=== PATIENT | female | born 1970 | race Caucasian/White ===

== ENCOUNTER 2018-07-25 11:18 | Emergency (ER) | payer OTHER, SELFPAY ==
[2018-07-25 11:25] VITALS: BP 140/85; PULSE 67; RESP 16; TEMP 37; O2SAT 100; BMI 27.4
[2018-07-25 11:50] VITALS: BP 133/82; PULSE 68; RESP 18
[2018-07-25 11:54] LABS: Add Manual Diff / Slide Review NO; Basophils Absolute Auto 100 /uL (0-100); Eosinophils Absolute Auto 300 /uL (0-450); Eosinophils Percent Auto 4.2 % (2-4); Hematocrit 40.2 % (36-46); Lymphocytes Absolute Auto 1500 /uL (1100-4500); Mean Corpuscular HGB Conc 32.5 % (30-36); Mean Corpuscular Hemoglobin 26.9 PG (26-34); Monocytes Absolute Auto 300 /uL (0-900); Monocytes Percent Auto 5.3 % (3-14); Neutrophils Absolute Auto 4000 /uL (1500-7000); Neutrophils Percent Auto 65.5 % (50-75); Platelet Count 282 X10^3/uL (150-400); Red Blood Cell Count 4.84 X10^6/uL (4.0-5.2); Red Cell Distribution Width 12.9 % (11.6-14.8); White Blood Cell Count 6.1 X10^3/uL (4.5-11.0)
[2018-07-25 12:03] LABS: BUN Creatinine Ratio 18.3 (6-22); Blood Urea Nitrogen 11 mg/dL (7-17); Carbon Dioxide 26 mmol/L (22-32); Chloride 106 mmol/L (98-107); Estimated Glomerular Filt Rate > 60.0 mL/min (>60); Glucose 100 mg/dL (70-100); HEMOLYSIS 22 (0-50); Potassium 3.8 mmol/L (3.4-5.1); Sodium 140 mmol/L (137-145)
[2018-07-25 12:13] LABS: Troponin I < 0.012 ng/mL (0.01-0.034)
[2018-07-25 13:00] VITALS: BP 144/89; PULSE 64; RESP 17; O2SAT 100
--- NOTE | 2018-07-25 20:03 | ED_ITS ---
HPI - Dizziness General Chief Complaint: Dizziness Stated Complaint: TINGLING, HIGH BLOOD PRESSURE, DIZZY Time Seen by Provider: 07/25/18 11:45 Source: patient and family Mode of arrival: ambulatory Limitations: no limitations History of Present Illness HPI Narrative: 47-year-old female nonsmoker with history of depressionpresents with vague symptoms such as fatigue and some dizziness and generalized tingling over the past week or 2. she denies any specific focal neurologic findings such as blurred vision, trouble with speech, unilateral numbness, tingling or weakness. She was at the ENT office today for routine evaluation and they noted her blood pressure to be in the 140s and stated that this was quite high and encouraged her to come directly to the emergency department. Admittedly the patient typically runs in the 110s. Patient does not typically take any antihypertensives. The patient began a 2 week taper of an SSRI 2 weeks ago and was set to start a new 1 in the past day or 2 but did not because she has not been feeling well. MD complaint: dizziness and lightheadedness Onset (ago): day(s) Timing: gradual onset Description: lightheadedness History of similar episodes: No History of trauma: No Severity: moderate Relieving factors: nothing Exacerbating factors: nothing Related Data Home Medications Medication Instructions Recorded Confirmed bupropion HCl 150 mg PO DAILY 07/25/18 07/25/18 Allergies Allergy/AdvReac Type Severity Reaction Status Date / Time No Known Drug Allergies Allergy Verified 07/25/18 11:25 Review of Systems Constitutional Denies chills, Reports difficulty sleeping, Denies fever(s), Denies lethargy and Reports weakness Eyes Denies change in vision, Denies eye discharge, Denies irritation and Denies loss of vision ENT Ears, Nose, Mouth, and Throat: Denies change in voice, Reports dizziness, Denies neck pain and Denies sore throat Cardiovascular Denies chest pain, Denies irregular heart rhythm, Denies lightheadedness, Denies palpitations, Denies dyspnea, Denies dyspnea on exertion and Denies orthopnea Respiratory Denies cough, Denies dyspnea, Denies dyspnea on exertion and Denies wheezing Gastrointestinal Gastrointestinal: Denies abdominal pain, Denies change in bowel habits, Denies diarrhea, Denies nausea and Denies vomiting Genitourinary Denies hematuria, Denies flank pain, Denies urinary incontinence and Denies urinary urgency Musculoskeletal Denies neck pain and Reports tingling Integumentary/Breasts Denies pruritus, Denies erythema, Denies rash and Denies wounds Neurologic Denies confusion, Reports dizziness, Denies loss of vision, Reports tingling and Reports weakness Psychiatric Denies anxiety, Denies confusion, Denies depression, Denies homicidal ideation and Denies suicidal ideation Endocrine Denies palpitations Hematologic/Lymphatic Denies easy bruising Allergic/Immunologic Denies wheezing Exam Narrative Exam Narrative: GENERAL: A 47-year-old female appears stated age.This is a well-nourished, well-developed patient, in mild distress. Visibly anxious HEAD: Atraumatic. Normocephalic. No temporal or scalp tenderness. EYES: Pupils equal round and reactive. Extraocular motions intact. No scleral icterus. No injection or drainage. ENT: Nose without bleeding, purulent drainage or septal hematoma. Throat without erythema, tonsillar hypertrophy or exudate. Uvula midline. Airway patent. NECK: Trachea midline. No JVD or lymphadenopathy. Supple, nontender, no meningeal signs. CARDIOVASCULAR: Regular rate and rhythm without murmurs, gallops, or rubs. RESPIRATORY: Clear to auscultation. Breath sounds equal bilaterally. No wheezes, rales, or rhonchi. GASTROINTESTINAL: Abdomen soft, non-tender, nondistended. No hepato- splenomegaly, or palpable masses. No guarding. EXTREMITIES: No clubbing, cyanosis, or edema. No joint tenderness, effusion, or edema noted. BACK: Nontender without deformity or crepitance. No flank tenderness. NEURO: AOx3. SKIN: No rash or erythema. NIH Stroke Scale 1a. LOC: Patient is alert and keenly responsive (0) 1b. LOC Questions: Patient answers both LOC questions accurately (0) 1c. LOC Commands: Patient performs both tasks correctly (0) 2. Best Gaze: Normal (0) 3. Visual: No visual loss (0) 4. Facial palsy: Normal symmetrical movements (0) 5. Motor arm: No drift (0) 6. Motor leg: No drift (0) 7. Limb ataxia: Absent (0) 8. Sensory: Normal (0) 9. Best language: No aphasia; normal (0) 10. Dysarthria: Normal (0) 11. Extinction and inattention: No abnormality (0) NIHSS: 0 Initial Vital Signs Initial Vital Signs: Vital Signs Temperature 98.6 F 07/25/18 11:25 Pulse Rate 67 07/25/18 11:25 Respiratory Rate 16 07/25/18 11:25 Blood Pressure 140/85 07/25/18 11:25 Pulse Oximetry 100 07/25/18 11:25 Course Orders Ordered: ED Orders 07/25/18 11:29 EKG-12 Lead Stat 07/25/18 11:46 Basic Metabolic Panel Stat Complete Blood Count AUTO DIFF Stat Troponin I Stat Vital Signs - 8 hr 07/25/18 13:00 Pulse Rate 64 Respiratory Rate 17 Blood Pressure [Right Arm] 144/89 H Pulse Oximetry 100 MDM - Dizziness Lab Data Result diagrams: 07/25/18 11:46 07/25/18 11:46 Lab Results 07/25/18 07/25/18 Range/Units 11:46 11:46 WBC 6.1 (4.5-11.0) X10^3/uL RBC 4.84 (4.0-5.2) X10^6/uL Hgb 13.0 (12.0-16.0) g/dL Hct 40.2 (36-46) % MCV 83.0 (80-100) fL MCH 26.9 (26-34) PG MCHC 32.5 (30-36) % RDW 12.9 (11.6-14.8) % Plt Count 282 (150-400) X10^3/uL Neut % (Auto) 65.5 (50-75) % Lymph % (Auto) 24.0 L (25-40) % [place] % (Auto) 5.3 (3-14) % Eos % (Auto) 4.2 H (2-4) % Baso % (Auto) 1.0 (0-2) % Neut # (Auto) 4000 (6131-0629) /uL Lymph # (Auto) 1500 (4798-5378) /uL [place] # (Auto) 300 (0-900) /uL Eos # (Auto) 300 (0-450) /uL Baso # (Auto) 100 (0-100) /uL Sodium 140 (137-145) mmol/L Potassium 3.8 (3.4-5.1) mmol/L Chloride 106 (98-107) mmol/L Carbon Dioxide 26 (22-32) mmol/L BUN 11 (7-17) mg/dL Creatinine 0.60 (0.52-1.04) mg/dL Estimated GFR > 60.0 (>60) mL/min BUN/Creatinine Ratio 18.3 (6-22) Glucose 100 (70-100) mg/dL Calcium 9.0 (8.4-10.2) mg/dL Troponin I < 0.012 (0.01-0.034) ng/mL MDM Narrative Medical decision making narrative: 47-year-old female presents with nonspecific symptoms such as dizziness, tingling and fatigue. The symptoms have been present for few weeks and on routine exam was noted to have elevated blood pressure of 140. this is higher than her normal 110 but still unlikely to be causing the above-stated symptoms. She has very little else going on and lab evaluation is normal. NIH stroke scale is 0. the symptoms also coincide with a taper off of her SSRI. It seems likely that her symptoms are multifactorial and probably related to, on some level, the tapering of her medications (although it was apparently very appropriately done). Though unlikely it is also a po ssibility that her BP is contributing some as well. she and have had questions answered to their apparent satisfaction and had been given extensive return precautions. She is encouraged to follow up with her primary care provider to discuss further evaluation of these symptoms and the possibility of initiating antihypertensives Discharge Plan Departure Patient Disposition: Home Clinical Impression: Hypertension Qualifiers: Hypertension type: essential hypertension Qualified Code(s): I10 - Essential (primary) hypertension Discharge Date/Time: 07/25/18 13:43 Interventions: ED Discharge Assessment Last Done: 07/25/18 13:42 Instructions: Essential Hypertension Activity Restrictions/Additional Instructions: *You have been diagnosed with [ hypertension, fatigue, ] *What to do: *Take medications as directed *Follow up with your primary care provider in 2-3 days, call for an appointment. Let them know you were seen in the Emergency Department and that we ask that you be seen in follow up *Return to ER if you should have any new, worsening or concerning symptoms, such as [ ] Prescriptions: No Action bupropion HCl 150 mg tablet extended release 24 hr 150 mg PO DAILY RF: 0
== END 2018-07-25 13:43 | disposition home or self-care (01) ==
PROVIDERS: Emergency Provider Emergency Medicine
DX: I10 Essential (primary) hypertension (principal)
CPT/HCPCS: 36591; 80048; 84484; 85025; 93005; 99282; 99284

== ENCOUNTER → 2020-02-10 11:26 | Outpatient (CLI) | payer OTHER, SELFPAY ==
[2020-02-11 13:45] LABS: COVID19 Sendout Not Detected (Not Detect)
== END ==
PROVIDERS: Visit Provider Family Medicine
DX: Z11.59 Encounter for screening for other viral diseases (principal)
CPT/HCPCS: 87635

== ENCOUNTER 2020-02-13 09:02 | Day surgery (SDC) | payer OTHER, SELFPAY ==
--- NOTE | 2020-02-13 | PATH_ITS ---
[facility] Accession Number: [id number] . 01 Material submitted: . PART A: small bowel - SMALL BOWEL PART B: stomach - STOMACH PART C: colon - RANDOM COLON . 01 Clinical history: . A: SMALL BOWEL TO R/O CELIAC DISEASE B: STOMACH BIOPSY TO RULE OUT HP . 02 Diagnosis: A. Small Bowel, Biopsy: Duodenal mucosa with no diagnostic abnormality. Negative for active inflammation, features of sprue, dysplasia, and malignancy. . B. Stomach, Biopsy: Antral mucosa with no diagnostic abnormality. Negative for Helicobacter by immunohistochemistry. Negative for intestinal metaplasia. Negative for dysplasia and malignancy. . C. Random Colon, Biopsy: Colonic mucosa with no diagnostic abnormality. Negative for active, chronic, and microscopic colitis. Negative for dysplasia and malignancy. [facility] 02/20/2020 1633 Local . 02 Electronically signed: . Amie Green MD, Pathologist NPI- [id number] . 01 Gross description: . A. Received in formalin, labeled small bowel, and consists of a 0.3 x 0.2 x 0.2 cm merlos fragment of soft tissue, which is entirely submitted in cassette A1. B. Received in formalin, labeled stomach, and consists of a 0.3 x 0.2 x 0.2 cm merlos fragment of soft tissue, which is entirely submitted in cassette B1. C. Received in formalin, labeled random colon, and consists of three merlos fragments of soft tissue measuring 0.5 x 0.4 x 0.2 cm in aggregate. The specimen is entirely submitted in cassette C1. (EA:[id number]) /MRV 02/14/2020 1457 Local . 02 Microscopic: . B. An immunohistochemical stain was performed to evaluate for Helicobacter organisms and is negative. The control stain showed appropriate reactivity. . * This test was developed and its performance characteristics determined by [facility]. It has not been cleared or approved by the U.S. Food and Drug Administration. The FDA has determined that such clearance or approval is not necessary. This test is used for clinical purposes. It should not be regarded as investigational or for research. . 02 Pathologist provided ICD-10: K30 . 02 CPT . 350497, 960018, 320532, T60078 Performed at: 01 [facility] [address] [id number] MD Zain Schaeffer MD Phone: [phone] Performed at: 02 [facility] [address] [place] [id number] MD Amie Green MD Phone: [phone]
[2020-02-13 09:22] VITALS: BP 132/79; PULSE 68; RESP 16; TEMP 36.1; O2SAT 99; BMI 26.6
[2020-02-13] MEDS: SODIUM CHLORIDE 0.9% 1,000 ML 84 ML IV (09:36)
[2020-02-13] MEDS: fentaNYL 250 MCG/5 ML INJ IV (09:56)
[2020-02-13] MEDS: MIDAZOLAM 5 MG/5 ML VIAL IV (09:56)
--- NOTE | 2020-02-13 10:07 | PM.OP.ENDO ---
Operative Date/Time/Diagnoses Date of procedure: 02/13/20 Pre-op diagnosis: See indication and findings Procedure & Clinicians Study performed: EGD and colonoscopy Same procedure as scheduled: Yes Indications: Dyspepsia and diarrhea Surgeon: Inés Argueta Procedure Notes Procedure in detail: After informed consent was obtained the patient was placed in left lateral decubitus position. The video upper endoscope was placed into the oropharynx and with the patient's help swelled into the esophagus. The esophagus stomach and duodenum were carefully examined. On withdrawal retroflexed view the GE junction was performed. The scope was removed. The patient tolerated procedure well. The colonoscope was then substituted the patient turned. This was introduced rectum and slowly advanced to cecum. Ic valve was identified and intubated the last 10 cm terminal ileum were examined. Preparation was good. On slow withdrawal mucosa was carefully examined. The scope was removed. The patient tolerated procedure well. Blood loss trivial blood loss from colonic biopsies. Complications none Sedation Total sedation time Versed 10 mg fentanyl 150 micro g IV titration Findings EGD 1. Normal esophagus 2. Striped antral mucosa biopsies taken to rule out Helicobacter 3. Normal duodenal bulb and sweep biopsies taken to rule out celiac Colonoscopy 1. Normal terminal ileum 2. Normal colonoscopy to cecum. Random biopsies taken to rule out microscopic colitis. We will merely await biopsies and the discuss next steps if negative.
--- NOTE | 2020-02-13 10:33 | P.HP_ITS ---
History of Present Illness History of Present Illness Date Patient Seen: 02/13/20 Chief complaint: SDC Narrative: Dyspepsia and diarrhea Patient History Family & Social History Social History: household members spouse Tobacco & Substance use: Smoking Status Never smoker alcohol intake never Substance Use Type does not use Meds Home Medications and Allergies Home Medications Medication Instructions Recorded Confirmed Type pantoprazole 20 mg PO DAILY 02/13/20 02/13/20 History sertraline 150 mg PO DAILY 02/13/20 02/13/20 History Allergies Allergy/AdvReac Type Severity Reaction Status Date / Time No Known Drug Allergies Allergy Verified 02/13/20 09:10 Exam Vital Signs (past 8 hours): - 02/13/20 09:22 Temperature 97.0 F L Pulse Rate 68 Respiratory Rate 16 Blood Pressure 132/79 Pulse Oximetry 99 Oxygen Delivery Method Room Air Narrative Exam Narrative: Oropharynx free of lesions Chest clear to auscultation percussion Cardiac exam reveals no S3 or murmur Assessment & Plan Assessment & Plan narrative: Diarrhea and dyspepsia. Need to rule out Traci cobacter celiac and microscopic colitis. Risks, benefits, alternatives have been explained.
[2020-02-13 10:37] VITALS: BP 119/76; PULSE 69; RESP 12; TEMP 36.4; O2SAT 95
[2020-02-13 10:42] VITALS: BP 124/83; PULSE 66; RESP 12; O2SAT 96
[2020-02-13 10:46] VITALS: BP 112/79; PULSE 64; RESP 14; O2SAT 96
[2020-02-13 10:51] VITALS: BP 113/78; PULSE 64; RESP 11; O2SAT 96
[2020-02-13 10:57] VITALS: BP 133/80; PULSE 69; RESP 13; TEMP 36.7; O2SAT 98
--- NOTE | 2020-02-13 11:03 | SUR.PHASEI ---
1055-Pt transferred to phase 2 in stable condition sitting up and drinking gingerale, report to Vangie RN
== END 2020-02-13 11:11 | disposition home or self-care (01) ==
PROVIDERS: Referring Provider Internal Medicine Gastroenterology; Visit Provider Internal Medicine Gastroenterology
PROC: 0DJ08ZZ Inspection of Upper Intestinal Tract, Via Natural or Artificial Opening Endoscopic (ICD-10-PCS; CPT 43235; principal; 2020-02-13 10:30)
PROC: 0DJD8ZZ Inspection of Lower Intestinal Tract, Via Natural or Artificial Opening Endoscopic (ICD-10-PCS; CPT 45378; 2020-02-13 10:30)
DX: R19.7 Diarrhea, unspecified (principal); K30 Functional dyspepsia; R13.10 Dysphagia, unspecified
CPT/HCPCS: 45380; 43239; J2250; J3010

== ENCOUNTER 2024-06-27 10:19 | Emergency (ER) | payer OTHER, SELFPAY ==
[2024-06-27] VITALS (14 sets, daily range): BP systolic 141–188; BP diastolic 71–99; PULSE 56–77; RESP 15–22; TEMP 36.7–36.9; O2SAT 97–99; BMI 28.2
--- NOTE | 2024-06-27 10:55 | DI.RAD.S_ITS ---
PROCEDURE: XR CHEST 1V INDICATIONS: chest pain TECHNIQUE: One view of the chest was acquired. COMPARISON: None. FINDINGS AND IMPRESSION: On this single view study with low lung volumes, no airspace consolidation or pleural effusion is seen. Normal heart size. Tortuous aorta. Mild degenerative osseous changes. Dictated by: Dionte Hodgson M.D. on 06/27/2024 at 11:38 Approved by: Dionte Hodgson M.D. on 06/27/2024 at 11:39
--- NOTE | 2024-06-27 11:00 | EKG_ITS ---
[id number] [address] Test Date: 2024-06-27 Pat Name: Taylor Suh Department: Room: Gender: Female Database Report Writer: MARK : 1970 Requested By: Order Number: [id number] Reading MD: Bernard Peoples MD Measurements Intervals [place] Rate: 64 P: 34 TX: 160 QRS: -19 QRSD: 82 T: 36 QT: 432 QTc: 445 Interpretive Statements Normal sinus rhythm Minimal voltage criteria for LVH, may be normal variant ( R in aVL ) Electronically Signed On 06-28-2024 7:36:24 PST by Bernard Peoples MD
[2024-06-27 11:17] LABS: Add Manual Diff / Slide Review NO; Basophils Absolute Auto 100 /uL (0-100); Basophils Percent Auto 1.5 % (0-2); Eosinophils Absolute Auto 200 /uL (0-450); Eosinophils Percent Auto 3.8 % (2-4); Hematocrit 45.3 % (36-46); Hemoglobin 15.2 g/dL (12.0-16.0); Lymphocytes Absolute Auto 1100 /uL (1100-4500); Lymphocytes Percent Auto 21.4 % (25-40); Mean Corpuscular HGB Conc 33.6 % (30-36); Mean Corpuscular Hemoglobin 29.3 PG (26-34); Mean Corpuscular Volume 87.1 fL (80-100); Monocytes Absolute Auto 400 /uL (0-900); Monocytes Percent Auto 7.5 % (3-14); Neutrophils Absolute Auto 3300 /uL (1500-7000); Neutrophils Percent Auto 65.8 % (50-75); Platelet Count 231 X10^3/uL (150-400); Red Cell Distribution Width 13.1 % (11.6-14.8)
[2024-06-27 11:23] LABS: Prothrombin Time 11.5 SECONDS (9.4-12.5)
[2024-06-27 11:26] LABS: PTT Partial Thromboplastin Tim 37 SECONDS (25.1-36.5)
[2024-06-27 11:28] LABS: Alanine Aminotransferase 27 IU/L (<35); Albumin 4.7 g/dL (3.5-5.0); Albumin Globulin Ratio 1.4 (1.0-2.8); Alkaline Phosphatase 88 U/L (38-126); Aspartate Aminotransferase 27 IU/L (14-36); Bilirubin Total 0.4 mg/dL (0.2-1.3); Blood Urea Nitrogen 15 mg/dL (7-17); Calcium 9.2 mg/dL (8.4-10.2); Carbon Dioxide 26 mmol/L (22-32); Chloride 107 mmol/L (98-107); Creatine Kinase 83 U/L (30-135); Estimated Glomerular Filt Rate > 60 mL/min (>60); Globulin 3.4 g/dL (1.7-4.1); Glucose 101 mg/dL (70-100); HEMOLYSIS < 15 (0-50); Lipase 91 U/L (23-300); Magnesium 2.1 mg/dL (1.6-2.3); Potassium 4.2 mmol/L (3.4-5.1); Sodium 142 mmol/L (137-145); Total Protein 8.1 g/dL (6.3-8.2)
[2024-06-27 11:40] LABS: NT-proBNP (BNP-Adult 18+) 51 pg/mL (<125); Troponin I < 0.012 ng/mL (0.01-0.034)
[2024-06-27] MEDS: ASPIRIN 81 MG CHEW TAB 324 MG PO (15:27)
--- NOTE | 2024-06-27 15:48 | ED.CHESTPAIN ---
HPI - Chest Pain General Chief Complaint: Chest Pain Stated Complaint: Not Feeling well,Mild chest pain Time Seen by Provider: 06/27/24 15:38 Mode of arrival: Ambulatory History of Present Illness HPI narrative: Patient here for substernal chest discomfort sharp and burning constant does not radiate. No dyspnea. Has had some congestion in the past couple of days. One of her children was sick. No nausea no sweating no diaphoresis no recent exertional chest pain or shortness of breath. Symptoms started yesterday afternoon. No primary family history of heart attack patient does not take blood pressure medication or cholesterol medication. Patient does not smoke. Patient has low heart score. She can feel the discomfort when she takes a deep breath at the sternal area. Related Data Home Medications Medication Instructions Recorded Confirmed pantoprazole 20 mg tablet,delayed 20 mg PO DAILY 02/13/20 02/13/20 release sertraline 100 mg tablet 150 mg PO DAILY 02/13/20 02/13/20 Previous Rx's Medication Instructions Recorded lisinopril 10 mg tablet 10 mg PO DAILY #14 tabs 06/27/24 lisinopril 5 mg tablet 10 mg (2 x 5 mg) PO DAILY #14 tabs 06/27/24 Allergies Allergy/AdvReac Type Severity Reaction Status Date / Time No Known Drug Allergies Allergy Verified 06/27/24 10:55 Review of Systems Review of Systems Narrative: GENERAL: Negative chills, fatigue, malaise, fever, sweats. HEENT: Negative sinus pain, ear pain, sore throat RESPIRATORY: Negative dyspnea, cough CARDIOVASCULAR: Positive chest pain, negative palpitations GASTROINTESTINAL: Negative nausea, vomiting, abdominal pain : Negative dysuria, frequency, hematuria MUSCULOSKELETAL: Negative muscle or bony pain SKIN: Negative rash, skin lesions NEUROLOGIC: Negative weakness, numbness ROS Unobtainable: All systems reviewed & are unremarkable except as noted in HPI and below Patient History Social History household members: spouse Smoking Status: Never smoker alcohol intake: never Smoking Status: Never smoker Exam Narrative Exam Narrative: GENERAL: in no distress, not toxic not dyspneic HEAD: Normocephalic. EYES: Pupils equal round ENT: Mucous membranes moist. NECK: Trachea midline. CARDIOVASCULAR: Regular rate and rhythm strong bilateral carotid radial pulses RESPIRATORY: Clear to auscultation. Breath sounds equal bilaterally. No wheezes, rales, or rhonchi. Nontender chest wall but has discomfort substernal area with deep breath GASTROINTESTINAL: Abdomen soft, non-tender EXTREMITIES: No gross deformities. BACK: No flank tenderness. NEURO: AOx4. Clear speech SKIN: Warm and dry PSYCH: Not anxious, is cooperative Initial Vital Signs Initial Vital Signs: Vital Signs Temperature 98.5 F 06/27/24 10:55 Scores HEART Score Heart Score history: Slightly Suspicious Heart Score EKG: Normal Heart Score Age: 45-64 years old Heart Score risk factors: 1-2 risk factors Heart Score troponin: < or = to normal limit Heart Score Total: 2 Course Orders Ordered: Discontinued Medications Aspirin (Aspirin 81 Mg Chew Tab) 324 mg PO NOW ONE Stop: 06/27/24 10:56 Last Admin: 06/27/24 15:27 Dose: 324 mg Documented By: JOAO Al Hydrox/Mg Hydrox/Simethicone 20 ml/ Lidocaine HCl 15 ml 0 ml PO NOW ONE Stop: 06/27/24 17:59 Last Admin: 06/27/24 18:19 Dose: 35 ml Documented By: STEFAN Ketorolac Tromethamine (Ketorolac 30 Mg/Ml Vial) 15 mg IV NOW ONE Stop: 06/27/24 15:48 Last Admin: 06/27/24 15:59 Dose: 15 mg Documented By: JOAO Lisinopril (Lisinopril 10 Mg Tablet) 10 mg PO NOW ONE Stop: 06/27/24 15:48 Last Admin: 06/27/24 15:59 Dose: 10 mg Documented By: JOAO Nitroglycerin (Nitroglycerin Oint 1 Inch/Gm Oint...G.) 1 inch TOP NOW ONE Stop: 06/27/24 16:45 Last Admin: 06/27/24 16:47 Dose: 1 inch Documented By: JOAO Pantoprazole Sodium (Pantoprazole 40 Mg Vial) 40 mg IV NOW ONE Stop: 06/27/24 17:59 Last Admin: 06/27/24 18:19 Dose: 40 mg Documented By: STEFAN Vital Signs Vital signs: Vital Signs - 8 hr 06/27/24 10:55 06/27/24 13:47 06/27/24 15:15 Temperature 98.5 F 98.1 F Pulse Rate 60 77 Respiratory Rate Blood Pressure 171/99 H Pulse Oximetry 99 99 Oxygen Delivery Method Room Air 06/27/24 15:16 06/27/24 15:16 06/27/24 15:30 Temperature Pulse Rate 68 Respiratory Rate Blood Pressure 188/89 H 176/82 H Pulse Oximetry 98 Oxygen Delivery Method 06/27/24 15:30 06/27/24 15:59 06/27/24 16:00 Temperature Pulse Rate 64 59 L Respiratory Rate 20 Blood Pressure 176/82 H 165/82 H Pulse Oximetry 99 Oxygen Delivery Method 06/27/24 16:00 06/27/24 16:30 06/27/24 16:30 Temperature Pulse Rate 60 62 Respiratory Rate 18 15 Blood Pressure 159/87 H Pulse Oximetry 98 99 Oxygen Delivery Method 06/27/24 16:47 06/27/24 17:00 06/27/24 17:00 Temperature Pulse Rate 59 L 61 Respiratory Rate 22 Blood Pressure 159/87 H 149/71 H Pulse Oximetry 99 Oxygen Delivery Method MDM - Chest Pain Lab Data 06/27/24 11:05 06/27/24 11:05 Labs: Lab Results 06/27/24 06/27/24 06/27/24 Range/Units 11:05 15:25 16:00 WBC 5.0 (4.5-11.0) X10^3/uL RBC 5.20 (4.0-5.2) X10^6/uL Hgb 15.2 (12.0-16.0) g/dL Hct 45.3 (36-46) % MCV 87.1 (80-100) fL MCH 29.3 (26-34) PG MCHC 33.6 (30-36) % RDW 13.1 (11.6-14.8) % Plt Count 231 (150-400) X10^3/uL Neut % (Auto) 65.8 (50-75) % Lymph % (Auto) 21.4 L (25-40) % [place] % (Auto) 7.5 (3-14) % Eos % (Auto) 3.8 (2-4) % Baso % (Auto) 1.5 (0-2) % Neut # (Auto) 3300 (8227-8369) /uL Lymph # (Auto) 1100 (1026-6513) /uL [place] # (Auto) 400 (0-900) /uL Eos # (Auto) 200 (0-450) /uL Baso # (Auto) 100 (0-100) /uL PT 11.5 (9.4-12.5) SECONDS INR 1.0 (0.9-1.3) APTT 37 H (25.1-36.5) SECONDS Sodium 142 (137-145) mmol/L Potassium 4.2 (3.4-5.1) mmol/L Chloride 107 (98-107) mmol/L Carbon Dioxide 26 (22-32) mmol/L BUN 15 (7-17) mg/dL Creatinine 0.79 (0.52-1.04) mg/dL Estimated GFR > 60 (>60) mL/min BUN/Creatinine Ratio 19.0 (6-22) Glucose 101 H (70-100) mg/dL Calcium 9.2 (8.4-10.2) mg/dL Magnesium 2.1 (1.6-2.3) mg/dL Total Bilirubin 0.4 (0.2-1.3) mg/dL AST 27 (14-36) IU/L ALT 27 (<35) IU/L Alkaline Phosphatase 88 (38-126) U/L Total Creatine Kinase 83 (30-135) U/L Troponin I < 0.012 0.021 (0.01-0.034) ng/mL NT-Pro-B Natriuret Pep 51 (<125) pg/mL Total Protein 8.1 (6.3-8.2) g/dL Albumin 4.7 (3.5-5.0) g/dL Globulin 3.4 (1.7-4.1) g/dL Albumin/Globulin Ratio 1.4 (1.0-2.8) Lipase 91 (23-300) U/L SARS-CoV-2 (PCR) Negative (Negative) Influenza A (RT-PCR) Flu a negative (NEGATIVE) Influenza B (RT-PCR) Flu b negative (NEGATIVE) RSV (PCR) Negative (Negative) Imaging Data Chest x-ray: Radiologist's Impression: [address] [address] XRay Report Signed Patient: Taylor Suh MR#: [id number] : 1970 Acct:[id number] Age/Sex: 53 / F Date of Service: 06/27/24 Loc: ED Accession Number: [id number] Procedure: XR chest 1V Ordering Provider: Bubba Schwarz MD PROCEDURE: XR CHEST 1V INDICATIONS: chest pain TECHNIQUE: One view of the chest was acquired. COMPARISON: None. FINDINGS AND IMPRESSION: On this single view study with low lung volumes, no airspace consolidation or pleural effusion is seen. Normal heart size. Tortuous aorta. Mild degenerative osseous changes. Dictated by: Dionte Hodgson M.D. on 06/27/2024 at 11:38 Approved by: Dionte Hodgson M.D. on 06/27/2024 at 11:39 [facility] Narrative Medical decision making narrative: Patient here for substernal chest discomfort sharp and burning constant does not radiate. No dyspnea. Has had some congestion in the past couple of days. One of her children was sick. No nausea no sweating no diaphoresis no recent exertional chest pain or shortness of breath. Symptoms started yesterday afternoon. No primary family history of heart attack patient does not take blood pressure medication or cholesterol medication. Patient does not smoke. Patient has low heart score. She can feel the discomfort when she takes a deep breath at the sternal area. After history and exam CBC CMP EKG chest x-ray troponin aspirin Toradol [facility] Medical records reviewed: No recent visit for this complaint Differential considered: Includes but not limited to STEMI non-STEMI costochondritis pleurisy Lab Test results independently reviewed as above. Pertinent findings: Troponin less than 0.012, repeat troponin 0.021 WBC 5.0 hemoglobin 15.2 AST 27 ALT 27, respiratory panel negative Independently reviewed EKG sinus rhythm rate [address] elevation or depression Imaging studies independently reviewed: Chest x-ray no acute finding Consultations: None indicated at this time Treatments: Aspirin Toradol Protonix GI cocktail Re-evaluations: 6:00 p.m.. Patient had no change in chest discomfort with Toradol or with nitro paste. However it is reproducible with deep breath. Will try GI cocktail and Protonix now. 6:45 p.m.. Patient states no significant change with GI cocktail and may have helped a little bit. At this time I did review their likely chest wall discomfort causing her pain. She desires discharge home. Reviewed her likely not cardiac in origin as discomfort is reproducible. Patient has low heart risk factors. Discussion: Appropriate for discharge home. Chest wall discomfort is reproducible. Return precautions reviewed with her. Patient has low heart risk factors. 2 troponins were normal. Blood pressure medication was started and will continue with prescription. She does have a family doctor to follow up with. She desires discharge home. No D-dimer indicated this time. No dyspnea. No tachycardia. Low risk factors for pulmonary embolism or DVT. Diagnosis: Chest pain Discharge Plan Departure Patient Disposition: Home Clinical Impression: Atypical chest pain Instructions: DI for Atypical Chest Pain Activity Restrictions/Additional Instructions: Please see your family doctor within a week for re-evaluation and have your blood pressure rechecked. Prescription for blood pressure medication has been sent to your pharmacy to continue tomorrow. Your laboratory studies imaging studies and exam is reassuring today. Return if worse if any questions or concerns Prescriptions: New lisinopril 5 mg tablet 10 mg PO DAILY Qty: 14 0RF lisinopril 10 mg tablet 10 mg PO DAILY Qty: 14 0RF No Action sertraline 100 mg tablet 150 mg PO DAILY pantoprazole 20 mg Tablet,Delayed Release (Dr/Ec) 20 mg PO DAILY Stand Alone Forms: Patient Portal/API/Survey
[2024-06-27 15:55] LABS: Troponin I 0.021 ng/mL (0.01-0.034)
[2024-06-27] MEDS: lisinopriL 10 MG TABLET PO (15:59)
[2024-06-27] MEDS: KETOROLAC 30 MG/ML VIAL 15 MG IV (15:59)
[2024-06-27 16:44] LABS: Influenza A - CEPHEID Flu A NEGATIVE (NEGATIVE); Influenza B - CEPHEID Flu B NEGATIVE (NEGATIVE); Respiratory Syncytial Virus Negative (Negative)
[2024-06-27] MEDS: NITROGLYCERIN OINT 1 INCH/GM OINT...G. TOP (16:47)
[2024-06-27 16:56] LABS: COVID-19 CEPHEID 4-PLEX PCR Negative (Negative)
--- NOTE | 2024-06-27 17:18 | PC.NURSE ---
No change in chest pain, MD aware
[2024-06-27] MEDS: MAG HYDROX/ALUMINUM/SIMETH SUS 20 ML, LIDOCAINE VISCOUS 2% 15 ML PO (18:19)
[2024-06-27] MEDS: PANTOPRAZOLE 40 MG VIAL IV (18:19)
== END 2024-06-27 19:03 | disposition home or self-care (01) ==
PROVIDERS: Emergency Provider Emergency Medicine
DX: R07.89 Other chest pain (principal)
CPT/HCPCS: 0241U; 36415; 71045; 80053; 82550; 83690; 83735; 83880; 84484; 85025; 85610; 85730; 93005; 96374; 96375; 99284; J1885; J2470